=== PATIENT | female | born 1975 | race Caucasian/White ===

== ENCOUNTER 2018-11-14 12:57 | Emergency (ER) | payer OTHER ==
[~2018-11-14] VITALS: Ht 182.9 cm; Wt 149.7 kg
[2018-11-14 13:19] VITALS: BP 142/94
[2018-11-14] MEDS ORDERED: DIPHTH,PERTUSS(ACELL),TET TOX 0.5 ML DISP.SYRIN. VAX IM ONE (13:45)
--- NOTE | 2018-11-14 13:45 | PHYS DOC ---
Past Medical History Past Medical History: Arthritis, Asthma, Fibromyalgia Past Surgical History: Cholecystectomy, Other Additional Past Surgical Histo: ankle fracture Alcohol Use: None Drug Use: None Adult General Chief Complaint Chief Complaint: MECHANICAL FALL HPI HPI Patient is a 43 year old female who presents with complaining of fall. Patient states she had a fall from a standing position when she tripped on a rug and hit the back of her head and right hand and left thigh without loss of consciousness. Patient rated her pain 7/10 and denies focal neuro deficit, nausea and vomiting, , fever and chills, chest pain and shortness of breath. Patient is not up-to-date with tetanus immunization. Review of Systems Review of Systems Constitutional: Denies fever or chills [] Eyes: Denies change in visual acuity, redness, or eye pain [] HENT: Denies nasal congestion or sore throat [] Respiratory: Denies cough or shortness of breath [] Cardiovascular: No additional information not addressed in HPI [] GI: Denies abdominal pain, nausea, vomiting, bloody stools or diarrhea [] : Denies dysuria or hematuria [] Musculoskeletal: Denies back pain, reports joint pain [] Integument: Denies rash or skin lesions [] Neurologic: Reports headache, denies focal weakness or sensory changes [] Endocrine: Denies polyuria or polydipsia [] All other systems were reviewed and found to be within normal limits, except as documented in this note. Current Medications Current Medications Current Medications Medications (Trade) Dose Ordered Sig/Jojo Start Time Stop Time Status Last Admin Dose Admin Diphtheria/ Tetanus/Acell Pertussis (Boostrix) 0.5 ml ONCE ONCE 11/14/18 13:45 11/14/18 13:46 DC 11/14/18 13:55 0.5 ML Ibuprofen (Motrin) 800 mg 1X ONCE 11/14/18 14:30 11/14/18 14:31 DC Allergies Allergies Allergies Coded Allergies Type Severity Reaction Last Updated Verified Penicillins Allergy Intermediate hives 11/11/14 No Physical Exam Physical Exam Constitutional: Well developed, well nourished, mild distress, non-toxic a ppearance, morbidly obese. [] HENT: Normocephalic, small area of contusion in right side of occipital area without fluctuation, normal ENT exam Eyes: PERRLA, EOMI, conjunctiva normal, no discharge. [] Neck: Normal range of motion, no tenderness, supple, no stridor. [] Cardiovascular:Heart rate regular rhythm, no murmur [] Lungs & Thorax: Bilateral breath sounds clear to auscultation [] Abdomen: Bowel sounds normal, soft, no tenderness, no masses, no pulsatile masses. [] Skin: Warm, dry, no erythema, no rash. [] Back: No tenderness, no CVA tenderness. [] Extremities: Left thigh without sign of injury or contusion or limited range of motion No tenderness, small superficial abrasion of right index finger without active bleeding, no cyanosis, no clubbing, ROM intact. Neurologic: Alert and oriented X 3, no focal deficits noted. [] Psychologic: Affect normal, judgement normal, mood normal. [] Current Patient Data Vital Signs Vital Signs Date Time Temp Pulse Resp B/P (MAP) Pulse Ox O2 Delivery O2 Flow Rate FiO2 11/14/18 13:19 98.7 95 18 142/94 (110) 96 Room Air 98.7 EKG EKG [] Radiology/Procedures Radiology/Procedures [][facility] [address] [place] [address] IMAGING REPORT Signed PATIENT: JESSICA ANGELES SACCOUNT: [id number] : 1975 LOCATION: ER AGE: 43 SEX: F EXAM STATUS: REG ER ORD. PHYSICIAN: FARA PFEIFFER MD REASON: fall, HIT RIGHT SIDE OF HEAD PROCEDURE: CT HEAD WO CONTRAST CT HEAD WO CONTRAST Indication: Hit head after a fall. Exposure: One or more of the following individualized dose reduction techniques were utilized for this examination: 1. Automated exposure control 2. Adjustment of the mA and/or kV according to patient size 3. Use of iterative reconstruction technique. Technique: Standard imaging without intravenous contrast. Comparison: None FINDINGS: No evidence of acute intracranial hemorrhage, mass effect, midline shift or abnormal extra-axial fluid collection. Frias-white matter distinction is intact. Ventricles and sulci are symmetric. Visualized orbits unremarkable. No significant scalp swelling or hematoma. Partially visualized sinuses are clear. No evidence of depressed skull fracture although a specific location of tenderness or pain is not known. IMPRESSION: No evidence of acute intracranial hemorrhage. Electronically signed by: Catarino Delgado MD (11/14/2018 2:37 PM) [id number] DICTATED and SIGNED BY: CATARINO DELGADO MD DATE: 11/14/18 1431 [facility] [address] [place] [address] IMAGING REPORT Signed PATIENT: JESSICA ANGELESOUNT: [id number] : 1975 LOCATION: ER AGE: 43 SEX: F EXAM STATUS: REG ER ORD. PHYSICIAN: FARA PFEIFFER MD REASON: fall. pain from left hip to knee PROCEDURE: LEFT FEMUR XRAY LEFT FEMUR XRAY History: Fall. Pain left hip. Technique: 2 views left femur. Comparison: None. Findings: Advanced left hip degenerative changes with marginal osteophyte formation, subchondral sclerosis and joint space narrowing. Increased sclerosis of the femoral head, may represent avascular necrosis. Normal alignment. No fracture. Pubic symphysis DJD. Tricompartment knee DJD partially imaged. Impression: 1. No acute osseous abnormality. 2. Increased sclerosis the left femoral head, may represent avascular necrosis. 3. Left hip and knee DJD. Electronically signed by: Rhett Damon DO (11/14/2018 2:07 PM) [facility] DICTATED and SIGNED BY: RHETT DAMON DO DATE: 11/14/18 1407 Course & Med Decision Making Course & Med Decision Making Pertinent Labs and Imaging studies reviewed. (See chart for details) [] Dragon Disclaimer Dragon Disclaimer This electronic medical record was generated, in whole or in part, using a voice recognition dictation system. Departure Departure Impression: Primary Impression: Head injury Additional Impressions: Fall Finger abrasion Left thigh pain Disposition: 01 HOME, SELF-CARE (at 1446) Condition: IMPROVED Referrals: UNKNOWN PCP NAME (PCP) Patient Instructions: Abrasions, Contusion, Head Injury, Adult Additional Instructions: Drink plenty of liquids Follow-up with your primary care physician in 3-5 days Return to ER if not getting better Apply ice on the affected area Scripts Ibuprofen (IBUPROFEN) 800 Mg Tablet 800 MG PO PRN Q8HRS PRN for INFLAMMATION, #20 TAB Prov: FARA PFEIFFER MD 11/14/18 Problem Qualifiers Primary Impression: Head injury Encounter type: initial encounter Qualified Codes: S09.90XA - Unspecified injury of head, initial encounter Additional Impressions: Fall Encounter type: subsequent encounter Qualified Codes: W19.XXXD - Unspecified fall, subsequent encounter Finger abrasion Encounter type: sequela Qualified Codes: S60.419S - Abrasion of unspecified finger, sequela FARA PFEIFFER MD Nov 14, 2018 13:45
--- NOTE | 2018-11-14 14:09 | RAD ---
LEFT FEMUR XRAY History: Fall. Pain left hip. Technique: 2 views left femur. Comparison: None. Findings: Advanced left hip degenerative changes with marginal osteophyte formation, subchondral sclerosis and joint space narrowing. Increased sclerosis of the femoral head, may represent avascular necrosis. Normal alignment. No fracture. Pubic symphysis DJD. Tricompartment knee DJD partially imaged. Impression: 1. No acute osseous abnormality. 2. Increased sclerosis the left femoral head, may represent avascular necrosis. 3. Left hip and knee DJD. Electronically signed by: Rhett Damon DO (11/14/2018 2:07 PM) [facility]
[2018-11-14] MEDS ORDERED: IBUPROFEN 400 MG TABLET. PO ONE (14:30)
--- NOTE | 2018-11-14 14:40 | RAD ---
CT HEAD WO CONTRAST Indication: Hit head after a fall. Exposure: One or more of the following individualized dose reduction techniques were utilized for this examination: 1. Automated exposure control 2. Adjustment of the mA and/or kV according to patient size 3. Use of iterative reconstruction technique. Technique: Standard imaging without intravenous contrast. Comparison: None FINDINGS: No evidence of acute intracranial hemorrhage, mass effect, midline shift or abnormal extra-axial fluid collection. Frias-white matter distinction is intact. Ventricles and sulci are symmetric. Visualized orbits unremarkable. No significant scalp swelling or hematoma. Partially visualized sinuses are clear. No evidence of depressed skull fracture although a specific location of tenderness or pain is not known. IMPRESSION: No evidence of acute intracranial hemorrhage. Electronically signed by: Catarino Delgado MD (11/14/2018 2:37 PM) [facility]
[2018-11-14] MEDS ORDERED: IBUP-1060 PO (14:47)
== END 2018-11-14 14:58 | disposition home or self-care (01) ==
LOC: ER 12:57
DX: S60.410A Abrasion of right index finger, initial encounter (principal); S09.90XA Unspecified injury of head, initial encounter; M79.652 Pain in left thigh; R51 Headache; J45.909 Unspecified asthma, uncomplicated; Z88.0 Allergy status to penicillin; W01.0XXA Fall on same level from slipping, tripping and stumbling without subsequent striking against object, initial encounter; Y93.89 Activity, other specified; Y92.89 Other specified places as the place of occurrence of the external cause; Y99.8 Other external cause status
CPT/HCPCS: 70450; 73552; 90471; 90715; 99284

== ENCOUNTER 2020-07-07 16:10 | Emergency (ER) | payer OTHER ==
[~2020-07-07] VITALS: Ht 182.9 cm; Wt 163.0 kg
[~2020-07-07 16:10] MED LIST: IBUP-1060 PO
--- NOTE | 2020-07-07 18:20 | RAD ---
EXAM: AP View of the chest DATE: 07/07/2020 6:03 PM INDICATION: Reason: edema / Spl. Instructions: / History: COMPARISON: No Prior FINDINGS/ IMPRESSION: Heart is mildly enlarged. Mediastinal and hilar contours are grossly unremarkable. Accounting for low lung volumes, no lobar consolidation or focal parenchymal airspace opacity. No pleural effusion or pneumothorax. Electronically signed by: Benji Stephenson MD (07/07/2020 6:18 PM) [facility]
--- NOTE | 2020-07-07 18:23 | RAD ---
EXAM: Frontal pelvis with bilateral hips. HISTORY: Pain, edema. COMPARISON: None. FINDINGS: There is severe right hip osteoarthritis. The superior joint space is effaced with mild fla ttening of the superior aspect of the femoral head. There is subchondral sclerosis with small subchon dral cysts. On the left, there also is severe osteoarthritis. There is collapse of the superior aspect of the fem oral head with significant volume loss and a component of superolateral subluxation. No fractures are identified. There are [id number] degenerative changes of the lower lumbar spin e. IMPRESSION: 1. Severe bilateral hip osteoarthritis. There is collapse of left femoral head with superolateral sub luxation. The right femoral head is mildly flattened. These findings are consistent with a component of either primary or secondary avascular necrosis. Electronically signed by: Patricia Dyer MD (07/07/2020 6:21 PM) [id number]
[2020-07-07] MEDS ORDERED: NAPROXEN 500 MG TABLET PO STA (18:46)
[2020-07-07 18:50] VITALS: BP 141/71
[2020-07-07 19:00] LABS: BILIRUBIN,URINE SMALL (NEG); CLARITY,URINE CLOUDY; COLOR,URINE AMBER; NITRITE,URINE NEGATIVE (NEG); PH,URINE 5.5 (<5.0-8.0); PROTEIN,URINE NEGATIVE (NEG-TRACE); UROBILINOGEN,URINE 0.2 mg/dL (0.2 mg/dL)
[2020-07-07] MEDS ORDERED: HYDROcodone/APAP 5/325MG 1 TAB TABLET PO ONE (19:00)
[2020-07-07] MEDS ORDERED: CYCLOBENZAPRINE 10 MG TABLET. PO ONE (19:00)
[2020-07-07 19:06] LABS: BARBITURATES NEG (NEG); BENZODIAZEPINES NEG (NEG); CANNABINOIDS NEG (NEG); COCAINE NEG (NEG); METHADONE NEG (NEG); OPIATES NEG (NEG); PHENCYCLIDINE NEG (NEG)
[2020-07-07 19:09] LABS: AMORPHOUS SEDIMENT,UR PRESENT /HPF; BACTERIA,URINE FEW /HPF (0-FEW); TRICHOMONAS,URINE PRESENT
[2020-07-07 19:11] LABS: AMPHETAMINE/METHAMPHETAMINE NEG (NEG)
[2020-07-07] MEDS ORDERED: predniSONE 10 MG TABLET PO ONE (19:30)
[2020-07-07] MEDS ORDERED: metroNIDAZOLE 500 MG TABLET PO ONE (19:30)
[2020-07-07] MEDS ORDERED: cefTRIAXone IM 500 MG VIAL. IM ONE (19:30)
[2020-07-07] MEDS ORDERED: DOXYCYCLINE HYCLATE 100 MG TABLET PO ONE (19:30)
--- NOTE | 2020-07-07 19:51 | PHYS DOC ---
Past Medical History Past Medical History: Arthritis, Asthma, Fibromyalgia Additional Past Medical Histor: "I RETAIN WATER" Past Surgical History: Cholecystectomy, Other Additional Past Surgical Histo: ankle fracture Smoking Status: Current Every Day Smoker Alcohol Use: None Drug Use: None General Adult EDM: Chief Complaint: OTHER COMPLAINTS HPI: HPI: Patient is a 44 year old female who presents to the ED today complaining of moderate bilateral hip pain chronic in nature, patient states for the last couple days she has not been able to bear weight fully due to chronic pain. She states she used to take gabapentin, Robaxin and naproxen but has not had this prescriptions for a while. Patient denies any known injury. Describes the pain as sharp constant and worse on weightbearing. She is also complaining of a flareup of her fibromyalgia. She states currently she has so much pain throughout her body that she is not able to take care of her 3-year-old child which she took to the mother in law. She states she needs her hip replaced Review of Systems: Review of Systems: Constitutional: Denies fever or chills. [] Eyes: Denies change in visual acuity. [] HENT: Denies nasal congestion or sore throat. [] Respiratory: Denies cough or shortness of breath. [] Cardiovascular: Denies chest pain or edema. [] GI: Denies abdominal pain, nausea, vomiting, bloody stools or diarrhea. [] : Denies dysuria. [] Musculoskeletal: Reports bilateral hip pain, chronic generalized pain from fibromyalgia, denies back pain Integument: Denies rash. [] Neurologic: Denies headache, focal weakness or sensory changes. [] Psychiatric: Denies depression or anxiety. [] Heart Score: C/O Chest Pain: N/A Risk Factors: Risk Factors: DM, Current or recent (<one month) smoker, HTN, HLP, family history of CAD, obesity. Risk Scores: Score 0 - 3: 2.5% MACE over next 6 weeks - Discharge Home Score 4 - 6: 20.3% MACE over next 6 weeks - Admit for Clinical Observation Score 7 - 10: 72.7% MACE over next 6 weeks - Early Invasive Strategies Current Medications: Current Medications Medications (Trade) Dose Ordered Sig/Jojo Start Time Stop Time Status Last Admin Dose Admin Acetaminophen/ Hydrocodone Bitart (Lortab 5/325) 2 tab 1X ONCE 07/07/20 19:00 4/29/21 19:01 DC 07/07/20 19:05 2 TAB Ceftriaxone Sodium (Rocephin Im) 500 mg 1X ONCE 07/07/20 19:30 07/07/20 19:31 DC Cyclobenzaprine HCl (Flexeril) 10 mg 1X ONCE 07/07/20 19:00 07/07/20 19:01 DC 07/07/20 19:03 10 MG Doxycycline Hyclate (Vibra-Tab) 100 mg 1X ONCE 07/07/20 19:30 07/07/20 19:31 DC Metronidazole (Flagyl) 2,000 mg 1X ONCE 07/07/20 19:30 07/07/20 19:31 DC Naproxen (Naprosyn) 500 mg 1X STAT 07/07/20 18:46 07/07/20 18:53 DC 07/07/20 19:03 500 MG Prednisone (Prednisone) 50 mg 1X ONCE 07/07/20 19:30 07/07/20 19:31 DC Allergies: Allergies: Allergies Coded Allergies Type Severity Reaction Last Updated Verified Penicillins Allergy Intermediate hives 11/11/14 No Physical Exam: PE: Constitutional: Dirty appearing morbidly obese patient, no acute distress, non- toxic appearance. [] HENT: Normocephalic, atraumatic, bilateral external ears normal, oropharynx moist, no oral exudates, nose normal. [] Eyes: PERRLA, EOMI, conjunctiva normal, no discharge. [] Neck: Normal range of motion, no tenderness, supple, no stridor. [] Cardiovascular:Heart rate regular rhythm, no murmur [] Lungs & Thorax: Bilateral breath sounds clear to auscultation [] Abdomen: Bowel sounds normal, soft, no tenderness, no masses, no pulsatile masses. [] Skin: Warm, dry, no erythema, no rash. [] Back: No tenderness, no CVA tenderness. [] Extremities: No tenderness, no cyanosis, no clubbing, limited range of motion to bilateral lower extremities specifically around the hips due to pain. Chronic bilateral lower extremity +2 edema Neurologic: Alert and oriented X 3, normal motor function, normal sensory function, no focal deficits noted. [] Psychologic: Affect normal, judgement normal, mood normal. [] Current Patient Data: Labs: Laboratory Tests Test 07/07/20 18:51 Urine Collection Type Unknown Urine Color Raven Urine Clarity Cloudy Urine pH 5.5 (<5.0-8.0) Urine Specific [place] 1.025 (1.000-1.030) Urine Protein Negative mg/dL (NEG-TRACE) Urine Glucose (UA) Negative mg/dL (NEG) Urine Ketones (Stick) Negative mg/dL (NEG) Urine Blood Negative (NEG) Urine Nitrite Negative (NEG) Urine Bilirubin Small (NEG) Urine Urobilinogen Dipstick 0.2 mg/dL (0.2 mg/dL) Urine Leukocyte Esterase Small (NEG) Urine RBC 1-2 /HPF (0-2) Urine WBC 11-20 /HPF (0-4) Urine Squamous Epithelial Cells Many /LPF Urine Amorphous Sediment Present /HPF Urine Bacteria Few /HPF (0-FEW) Urine Mucus Marked /LPF Urine Trichomonas Present Urine Opiates Screen Neg (NEG) Urine Methadone Screen Neg (NEG) Urine Barbiturates Neg (NEG) Urine Phencyclidine Screen Neg (NEG) Urine Amphetamine/Methamphetamine Neg (NEG) Urine Benzodiazepines Screen Neg (NEG) Urine Cocaine Screen Neg (NEG) Urine Cannabinoids Screen Neg (NEG) Urine Ethyl Alcohol Neg (NEG) Vital Signs: Vital Signs Date Time Temp Pulse Resp B/P (MAP) Pulse Ox O2 Delivery O2 Flow Rate FiO2 07/07/20 19:05 23 97 Room Air 07/07/20 16:15 99.8 108 164/105 (124) 99.8 EKG: EKG: [] Radiology/Procedures: Radiology/Procedures: []PROCEDURE: HIP BILATERAL WITH PELVIS EXAM: Frontal pelvis with bilateral hips. HISTORY: Pain, edema. COMPARISON: None. FINDINGS: There is severe right hip osteoarthritis. The superior joint space is effaced with mild flattening of the superior aspect of the femoral head. There is subchondral sclerosis with small subchondral cysts. On the left, there also is severe osteoarthritis. There is collapse of the superior aspect of the femoral head with significant volume loss and a component of superolateral subluxation. No fractures are identified. There are [id number]-ry-[id number] degenerative changes of the lower lumbar spine. IMPRESSION: 1. Severe bilateral hip osteoarthritis. There is collapse of left femoral head with superolateral subluxation. The right femoral head is mildly flattened. These findings are consistent with a component of either primary or secondary avascular necrosis. Electronically signed by: Patricia Dyer MD (07/07/2020 6:21 PM) [id number] DICTATED and SIGNED BY: DUDLEY DYER MD DATE: 07/07/207315OCE0 0 PROCEDURE: CHEST AP ONLY EXAM: AP View of the chest DATE: 07/07/2020 6:03 PM INDICATION: Reason: edema / Spl. Instructions: / History: COMPARISON: No Prior FINDINGS/ IMPRESSION: Heart is mildly enlarged. Mediastinal and hilar contours are grossly unremarkable. Accounting for low lung volumes, no lobar consolidation or focal parenchymal airspace opacity. No pleural effusion or pneumothorax. Electronically signed by: Benji Huynh MD (07/07/2020 6:18 PM) [facility] DICTATED and SIGNED BY: BENJI HUYNH MD DATE: 07/07/205967GXJ4 0 Course & Med Decision Making: Course & Med Decision Making Pertinent Labs and Imaging studies reviewed. (See chart for details) This is a 44-year-old female patient presented to the ED today complaining of bilateral hip pain, pain is chronic, no known injury. Patient requesting bilateral hip replacements. Patient is also complaining of chronic pain throughout her body from fibromyalgia. She was noted to be running a slight temp of 99.6 Urine positive for UTI, urine also positive for trichomonas. She was treated and educated on STDs. Bilateral hip x-rays were noted for severe osteoarthritis. I spoke to Dr. Shah. Patient was provided instructions to follow-up with him in the clinic. Discharge on cephalexin for UTI and doxycycline to complete STD treatment Jarad Disclaimer: Jarad Disclaimer: This electronic medical record was generated, in whole or in part, using a voice recognition dictation system. Departure Departure Impression: Primary Impression: Degenerative joint disease (DJD) of hip Qualified Codes: M16.0 - Bilateral primary osteoarthritis of hip Additional Impressions: Fibromyalgia Trichomonas infection Urinary tract infection Qualified Codes: N30.00 - Acute cystitis without hematuria Disposition: HOME / SELF CARE / HOMELESS Condition: STABLE Referrals: NO PCP (PCP) ALYCIA SHAH MD follow up in the course of this week Patient Instructions: Arthritis, Degenerative-Brief, Fibromyalgia, T richomoniasis-Brief, Urinary Tract Infection Additional Instructions: You were evaluated in the emergency room and noted to have severe osteoarthritis to your hips. We provided you an orthopedic doctor, contact his office tomorrow morning and set up a follow-up appointment. You also have urinary tract infection and trichomonas, trichomonas is a sexually transmitted disease you were treated in the emergency room. Please complete the rest of your antibiotics. Please follow-up with the health department for STD concerns. Please contact your partner/s and asked him to seek treatment Scripts Gabapentin (GABAPENTIN) 600 Mg Tablet 600 MG PO TID for NEUROGENIC PAIN, #30 TAB Prov: SANDRA DASH APRN 07/07/20 Diclofenac Potassium (DICLOFENAC POTASSIUM) 50 Mg Tablet 1 TAB PO BID, #20 TAB 0 Refills Prov: SANDRA DASH APRN 07/07/20 Methocarbamol (METHOCARBAMOL) 500 Mg Tablet 500 MG PO TID, #30 TAB Prov: SANDRA DASH APRN 07/07/20 Doxycycline Hyclate (DOXYCYCLINE HYCLATE) 100 Mg Tablet 1 TAB PO BID, #14 TAB Prov: SANDRA DASH APRN 07/07/20 Cephalexin (CEPHALEXIN) 500 Mg Tablet 1 TAB PO BID, #14 TAB Prov: SANDRA DASH APRN 07/07/20 SANDRA DASH APRN Jul 07, 2020 19:51
[2020-07-07] MEDS ORDERED: METH-561 PO (20:09)
[2020-07-07] MEDS ORDERED: GABA600T7 PO (20:09)
[2020-07-07] MEDS ORDERED: DICL50TA2 PO (20:09)
[2020-07-07] MEDS ORDERED: DOXY100T PO (20:09)
[2020-07-07] MEDS ORDERED: CEPH500T PO (20:09)
== END 2020-07-07 22:06 | disposition home or self-care (01) ==
LOC: ER 16:10
DX: N30.00 Acute cystitis without hematuria (principal); M16.0 Bilateral primary osteoarthritis of hip; A59.9 Trichomoniasis, unspecified; M79.7 Fibromyalgia; G89.29 Other chronic pain; J45.909 Unspecified asthma, uncomplicated; F17.200 Nicotine dependence, unspecified, uncomplicated; Z90.49 Acquired absence of other specified parts of digestive tract; Z88.0 Allergy status to penicillin
CPT/HCPCS: 71045; 73521; 80307; 81001; 87086; 96372; 99284; J0696; J7512